=== PATIENT | female | born 1975 | race Caucasian/White ===

== ENCOUNTER 2019-12-14 14:42 | Outpatient (CLI) | payer BC ==
--- NOTE | 2019-12-14 15:36 | MMO ---
Bilateral MAMMO Bilat Diag [facility]. CLINICAL HISTORY: Patient is 43 years old and is seen for diagnostic exam. The patient has no family history of breast cancer. The patient has no personal history of cancer. The patient has a history of bilateral needle biopsy more than 10 years ago - benign. VIEWS: The views performed were: bilateral craniocaudal with tomosynthesis; bilateral mediolateral oblique with tomosynthesis; and bilateral mediolateral with tomosynthesis. FILMS COMPARED: The present examination has been compared to a prior imaging study performed at [facility] on 12/14/2019. This study has been interpreted with the assistance of computer-aided detection. MAMMOGRAM FINDINGS: The breasts are heterogeneously dense, which could obscure a lesion on mammography. There is a mass @ 1:00 right breast (palpable) which is solid on US. Benign calcifications are noted bilaterally. Left biopsy clip. Right biopsy clip. In the left breast, there are no suspicious masses, calcifications or areas of architectural distortion. IMPRESSION: FINDING IN THE RIGHT BREAST IS SUSPICIOUS. AN ULTRASOUND-GUIDED BREAST BIOPSY IS RECOMMENDED. THE RESULTS OF THIS EXAM WERE SENT TO THE PATIENT. ACR BI-RADS Category 4 - Suspicious abnormality - biopsy should be considered MAMMOGRAPHY NOTE: 1. A negative mammogram report should not delay a biopsy if a dominant of clinically suspicious mass is present. 2. Approximately 10% to 15% of breast cancers are not detected by mammography. 3. Adenosis and dense breasts may obscure an underlying neoplasm. Reported by: JACOB STUART MD Electonically Signed: [id number]
--- NOTE | 2019-12-14 16:07 | ULT ---
RIGHT BREAST ULTRASOUND: 12/14/19 HISTORY: Palpable mass at the 1 o'clock position of the right breast. FINDINGS: Correlation is made with mammogram same date. Sonographic evaluation of the region of palpable concern at the 1 o'clock position of the right breas t, 5 cm from the nipple demonstrates a well circumscribed nonshadowing solid appearing hypoechoic mas s. This could represent a fibroadenoma. The patient is not comfortable waiting six months for a follo w-up and a ultrasound guided biopsy is recommended. IMPRESSION: BI-RADS 4: Suspicious Abnormality - Ultrasound guided biopsy Should Be Considered Usually requires biopsy. Discussed in person with the patient at 3:30 p.m. and over the telephone with Dr. Elizabeth Spencer at 3:3 8 p.m. POS: OFF
== END 2019-12-14 14:43 | disposition home or self-care (01) ==
LOC: BICMAMMO 14:42
PROVIDERS: ATTEND Nurse Practitioner Family
DX: N63.10 Unspecified lump in the right breast, unspecified quadrant (principal)
CPT/HCPCS: 77066; G0279

== ENCOUNTER → 2019-12-18 | Day surgery (SDC) | payer BC ==
--- NOTE | 2019-12-18 08:14 | MMO ---
FILMS COMPARED: The present examination has been compared to a prior imaging study performed at [facility] on 12/14/2019. MAMMOGRAM FINDINGS: The breast is heterogeneously dense, which could obscure a lesion on mammography. MASS AT 12:00 IMPRESSION: FINDING IN THE RIGHT BREAST IS CONFIRMED UTILIZING POST PROCEDURE MAMMOGRAM. Reported by: RADHA FAITH MD Electonically Signed: [id number]
--- NOTE | 2019-12-18 08:38 | ULT ---
Sonographic guided right breast mass biopsy HISTORY: Palpable right breast mass superior medial quadrant 1:00 position. FINDINGS: After explaining the procedure and answering all questions, the hypoechoic mass at the supe rior medial aspect of the right breast was again visualized. Sterile technique, buffered local anesthesia, sonographic guidance, and a lateral approach were used to carefully advance a 14-gauge core biopsy needle to the level of a hypoechoic mass. A total of 2 14-gauge specimens were obtained and eventually submitted pathology. Localization clip w as placed in the biopsy bed under sonographic control. Patient tolerated the procedure well and was eventually dismissed in good condition. IMPRESSION : Technically successful sonographic guided biopsy right breast mass. Pathology is pending.
== END ==
LOC: BICULT 07:24
PROVIDERS: ATTEND Nurse Practitioner Family
PROC: 0H9T3ZX Drainage of Right Breast, Percutaneous Approach, Diagnostic (ICD-10-PCS; principal; 2019-12-18)
DX: N63.12 Unspecified lump in the right breast, upper inner quadrant (principal)
CPT/HCPCS: 19083; 88305